=== PATIENT | female | born 1950 | race Caucasian/White ===

== ENCOUNTER → 2019-06-18 | Outpatient (CLI) | payer MEDICARE, OTHER ==
--- NOTE | 2019-06-19 08:39 | MAM ---
EXAM DESCRIPTION: 3D Screening BILATERAL : Digital Mammography. CLINICAL HISTORY: 68 years Female SCREENING . No personal history of breast cancer. Right breast itches. Menarche age 15. Childbirth age 19. Menopausal age 43. HRT for 20 years more than 5 years ago. Benign right breast biopsy.. Lifetime risk of developing breast cancer (Tyrer-Cuzick model)(%): 5.2. COMPARISON: Baseline study at this facility.. No prior reports available. TECHNIQUE: Bilateral CC and MLO projection full-field images, digital tomosynthesis mammographic technique. Bilateral digital 2-D full-field MLO images. CAD not available for tomosynthesis or 2-D images. FINDINGS: The breast parenchymal density pattern is: Scattered areas of fibroglandular density. No skin thickening or nipple retraction. Bilateral axillary lymph nodes. Bilateral solitary microcalcifications and coarse calcifications. Focal asymmetry in the middle third of the left breast at the 12:00 position, 4 cm from the nipple. No associated microcalcifications. No focal, stellate mass or density, focal asymmetry , and no suspicious microcalcifications right breast. IMPRESSION: BI-RADS CATEGORY: 0 - INCOMPLETE- Need additional imaging evaluation. FOLLOW-UP: Recall for additional imaging: Full-field LM projection 2-D and tomosynthesis images left breast with directed left breast ultrasound of the region of interest.. Written communication concerning the IMPRESSION and Follow-up, will be mailed to the patient and referring health care provider. Electronically signed by: Ricardo Chávez MD 06/19/2019 8:37 AM HANDYPERSON
== END ==
LOC: MAMMO 15:33
PROVIDERS: ATTEND Family Medicine
DX: Z12.31 Encounter for screening mammogram for malignant neoplasm of breast (principal)

== ENCOUNTER → 2019-08-10 | Outpatient (CLI) | payer MEDICARE, OTHER | LOC: GMA MATASK 13:41 | PROVIDERS: ATTEND Family Medicine | DX: M79.672 Pain in left foot (principal) ==

== ENCOUNTER → 2019-12-07 | Outpatient (CLI) | payer MEDICARE, OTHER | LOC: GMA MATASK 10:44 | PROVIDERS: ATTEND Family Medicine | DX: I10 Essential (primary) hypertension (principal) ==